=== PATIENT | male | born 1995 | race Caucasian/White ===

== ENCOUNTER 2021-02-11 15:28 | Emergency (ER) | payer MEDICAID ==
[~2021-02-11] VITALS: Ht 172.7 cm; Wt 77.1 kg
[2021-02-11 15:44] VITALS: BP 164/124
[2021-02-11] MEDS ORDERED: ACET-2605 PO (16:41)
--- NOTE | 2021-02-11 16:49 | NUR ---
RECHECKED BP 158/103, CORETTA ROGERS AWARE, NO NEW ORDER. ADVISED PATIENT TO FOLLOW UP WITH PMD WITHIN 24 HOURS. PT VERBALIZED UNDERSTANDING.
== END 2021-02-11 16:51 | disposition home or self-care (01) ==
LOC: ER 15:28
DX: S09.8XXA Other specified injuries of head, initial encounter (principal); F07.81 Postconcussional syndrome; R51.9 Headache, unspecified; Z79.899 Other long term (current) drug therapy; V49.49XA Driver injured in collision with other motor vehicles in traffic accident, initial encounter; Y93.89 Activity, other specified; Y92.488 Other paved roadways as the place of occurrence of the external cause; Y99.8 Other external cause status
CPT/HCPCS: 70450-TC

== ENCOUNTER 2023-11-01 17:07 | Emergency (ER) | payer MEDICAID ==
[~2023-11-01] VITALS: Ht 175.3 cm; Wt 81.6 kg
[~2023-11-01 17:07] MED LIST: ACET-2605 PO
[2023-11-01] MEDS ORDERED: METOCLOPRAMIDE HCL 10 MG/2 ML VIAL ONE (17:50)
[2023-11-01] MEDS ORDERED: diphenhydrAMINE HCL 50 MG/ML VIAL ONE (17:50)
[2023-11-01] MEDS ORDERED: KETOROLAC TROMETHAMINE 15 MG/ML VIAL ONE (17:50)
[2023-11-01] MEDS: diphenhydrAMINE HCL 50 MG/ML VIAL IV ONE (18:00)
[2023-11-01] MEDS: KETOROLAC TROMETHAMINE 15 MG/ML VIAL IV ONE (18:02)
[2023-11-01] MEDS: IV NS 0.9% 1,000 ML BAG IV ONE (18:05)
[2023-11-01] MEDS: METOCLOPRAMIDE HCL 10 MG/2 ML VIAL IV ONE (18:07)
[2023-11-01] MEDS ORDERED: ACET-2605 PO (19:38)
[2023-11-01] MEDS ORDERED: IBUP-1955 PO (19:38)
[2023-11-01 19:49] VITALS: BP 134/89; TEMP 98; O2SAT 99
== END 2023-11-01 19:49 | disposition home or self-care (01) ==
LOC: ER 17:11
DX: R51.9 Headache, unspecified (principal); Z79.899 Other long term (current) drug therapy
CPT/HCPCS: 99285; 96374; 70450; 96375; 96361; J1200; J2765; J7030; J1885